=== PATIENT | male | born 1955 ===

== ENCOUNTER 2017-08-15 10:45 | Outpatient (CLI) | payer OTHER ==
--- NOTE | 2017-08-15 12:07 | RAD ---
LEFT KNEE FOUR VIEWS: HISTORY: Left knee pain. FINDINGS: The joint spaces are preserved. Minimal osteophytosis. No acute fracture, dislocation, or fluid dis tention of the suprapatellar bursa. IMPRESSION: Minimal osteoarthritic changes, left knee. POS: [facility]
--- NOTE | 2017-08-15 12:08 | RAD ---
RIGHT KNEE FOUR VIEWS: History: Right knee pain. FINDINGS: There is mild joint space narrowing of the medial compartment and mild tricompartmental osteophytosis . No acute fracture, dislocation, or fluid distention of the suprapatellar bursa. IMPRESSION: Mild osteoarthritic changes right knee. POS: [facility]
== END 2017-08-15 10:46 | disposition home or self-care (01) ==
LOC: RAD-FRANK 10:45
PROVIDERS: ATTEND Internal Medicine
DX: M17.9 Osteoarthritis of knee, unspecified (principal); M17.11 Unilateral primary osteoarthritis, right knee